=== PATIENT | female | born 1990 | race Hispanic/Latino ===

== ENCOUNTER 2017-12-04 10:11 | Emergency (ER) | payer SELFPAY ==
[2017-12-04 10:41] LABS: #Basophils 0.1 thou/uL (0.0-0.2); #Eosinphils 0.4 thou/uL (0.0-0.7); #Lymphocytes 3.1 thou/uL (1.20-3.40); #Monocytes 0.8 thou/uL (0.11-0.59); #Neutrophils 7.5 thou/uL (1.40-6.50); %Basophils 0.4 % (0.0-1.0); %Eosinophils 3.2 % (0.0-10.0); %Lymphocytes 26.1 % (21.0-51.0); %Monocytes 6.3 % (0.0-10.0); %Neutrophils 63.9 % (42.0-75.0); Hemoglobin 13.5 g/dL (12.0-16.0); Mean Corpuscular HGB CONC 33.2 g/dL (32.0-36.0); Mean Corpuscular Hemoglobin 28.9 pg (27.0-31.0); Mean Corpuscular Volume 86.9 fL (78.0-98.0); Mean Platelet Volume 6.9 fL (7.4-10.4); Platelet Count 339 thou/uL (130-400); RBC Distribution Width 11.5 % (11.5-14.5); Red Blood Cell (RBC) Count 4.66 mill/uL (4.20-5.40); White Blood Cell (WBC) Count 11.8 thou/uL (4.8-10.8)
[2017-12-04 10:51] LABS: BHCG - Serum Negative (NEGATIVE); Pregs Control Background? CLEAR/WHITE (CLR/WHITE); Pregs Control Bar Appear? YES (CONTROL BAR)
[2017-12-04 11:07] LABS: ALT (SGPT) 16 U/L (8-55); AST (SGOT) 28 U/L (5-34); Alkaline Phosphatase 81 U/L (40-150); Anion Gap 12 mmol/L (10-20); BUN (Urea Nitrogen) 16 mg/dL (7.0-18.7); Bilirubin, Total 0.4 mg/dL (0.2-1.2); Calc. Creatinine Clearance 0 mL/min (70-130); Calcium 8.9 mg/dL (7.8-10.44); Carbon Dioxide 23 mmol/L (22-29); Chloride 106 mmol/L (98-107); Estimated GFR-MDRD Greater than 90; Globulin 3.5 g/dL (2.4-3.5); Glucose 96 mg/dL (70-105); Potassium 3.6 mmol/L (3.5-5.1); Protein, Total 7.5 g/dL (6.0-8.3); Sodium 137 mmol/L (136-145)
--- NOTE | 2017-12-07 14:51 | EKG ---
Test Reason : Blood Pressure : / mmHG Vent. Rate : 068 BPM Atrial Rate : 068 BPM P-R Int : 146 ms QRS Dur : 092 ms QT Int : 422 ms P-R-T Axes : 034 020 016 degrees QTc Int : 448 ms Normal sinus rhythm Normal ECG Confirmed by ELVIRA KELLOGG, DAVID Leyva ([id number]), map editor TONY THAPA ([id number]) on 12/07/2017 2:51:30 PM Referred By: Confirmed By:DAVID FELIX MD
== END 2017-12-04 11:26 | disposition home or self-care (01) ==
LOC: EDBD 10:11 → ERS 10:11
DX: R55 Syncope and collapse (principal); F41.9 Anxiety disorder, unspecified; F32.9 Major depressive disorder, single episode, unspecified
CPT/HCPCS: 80053; 84703; 85025; 93005

== ENCOUNTER 2020-04-19 09:51 | Outpatient (CLI) | payer OTHER ==
--- NOTE | 2020-04-19 11:30 | ULT ---
US OB Complete STANDARD History: Obesity complicating Comparison: None. Findings: Real-time grayscale, color and spectral analysis of the gravid uterus was performed transab dominal approach. Single viable intrauterine with average ultrasound age 33 week 0 day with estimated date of delivery June 07, 2020. Estimated weight is 4 lbs. 9 oz., 65th percentile. Biometry: Biparietal diameter: 8.12 cm, 32 week 5 day Head circumference: 29.79 cm, 33 weeks 0 day Abdominal circumference: 29.12 cm, 33 week 1 day Femur length: 6.31 cm, 32 week 5 day Amniotic fluid index: 21.34 cm. Anatomy: The head, four-chamber heart, stomach, kidneys, cord insertion, spine, bladder, lips/nose, u pper extremities, lower extremity is, three-vessel cord are all normal. Heart rate documented at 130 bpm. Impression: 1. Normal single viable intrauterine . 2. Amniotic fluid index upper limits of normal measuring 21.34 cm.
== END 2020-04-19 09:52 | disposition home or self-care (01) ==
LOC: BICULT 09:51
PROVIDERS: ATTEND Family Medicine
DX: O99.213 Obesity complicating pregnancy, third trimester (principal); Z3A.33 33 weeks gestation of pregnancy
CPT/HCPCS: 76805